=== PATIENT | male | born 1990 | race American Indian/Alaskan Native ===

== ENCOUNTER 2016-09-18 04:41 | Emergency (ER) | payer SELFPAY ==
[2016-09-18 04:42] VITALS: BMI 33.3
--- NOTE | 2016-09-18 05:15 | C.PDOC ---
History Of Present Illness 26 year old male who presents to the ER with a complaint of neck pain radiating to the arms and hands. Patient states he feels a tightness to his arms and hands. Patient took and Aleve WORKING SEC[employer] with minimal relief. Denies trauma, strenuous activity, chest pain, weakness, numbness, or SOB. Time Seen by Provider: 09/18/16 05:05 Chief Complaint (Nursing): Upper Extremity Problem/Injury History Per: Patient History/Exam Limitations: no limitations Onset/Duration Of Symptoms: Hrs Current Symptoms Are (Timing): Still Present Quality: Tightness Exacerbating Factor(s): Nothing Recent travel outside of the [place]: No Past Medical History Reviewed: Historical Data, Nursing Documentation, Vital Signs Vital Signs: Last Vital Signs Temp 97.7 F 09/18/16 05:53 Pulse 56 L 09/18/16 05:53 Resp 18 09/18/16 05:53 BP 130/72 09/18/16 05:53 Pulse Ox 99 09/18/16 05:53 - Medical History PMH: No Chronic Diseases Surgical History: No Surg Hx - [facility] Procedures INJECT/INFUSE NEC (03/19/14) Family History: States: No Known Family Hx - Social History Hx Alcohol Use: No Hx Substance Use: No Review Of Systems Cardiovascular: Negative for: Chest Pain Respiratory: Negative for: Shortness of Breath Musculoskeletal: Positive for: Neck Pain, Arm Pain (Bilateral, radiating from neck) Neurological: Negative for: Weakness, Numbness Physical Exam - Physical Exam Appears: Non-toxic, No Acute Distress Skin: Normal Color, Warm, Dry Head: Atraumatic, Normacephalic Eye(s): bilateral: Normal Inspection, PERRL Oral Mucosa: Moist Neck: Decreased ROM (limited due to pain), No Midline Cervical Tenderness, Paracervical Tenderness (b/l), No Step Off Deformity Chest: Symmetrical, No Tenderness Cardiovascular: Rhythm Regular, No Murmur Respiratory: Normal Breath Sounds, No Rhonchi, No Wheezing Extremity: Normal ROM, No Tenderness, No Deformity, No Swelling Extremity: Bilateral: Atraumatic, Normal Color And Temperature, Normal ROM Pulses: Left Radial: Normal, Right Radial: Normal Neurological/Psych: Oriented x3, Normal Motor, Normal Sensation ED Course And Treatment O2 Sat by Pulse Oximetry: 100 (Room air) Pulse Ox Interpretation: Normal Progress Note: Motrin administered. Patient is resting comfortably, and is in no acute distress. Patient was instructed to follow up with PMD in 1-2 days for further evaluation. Return precautions discussed with pt who expressed understanding Disposition Counseled Patient/Family Regarding: Diagnosis, Need For Followup, Rx Given - Disposition Disposition: HOME/ ROUTINE Disposition Time: 05:37 Condition: STABLE Additional Instructions: continue medications prescribed Follow up with PMD Return to ER if worse Prescriptions: Cyclobenzaprine [Cyclobenzaprine HCl] 10 mg PO HS #7 tab Ibuprofen [Motrin Tab] 800 mg PO QID #20 tab Instructions: Cervical Strain (GEN) - Clinical Impression Clinical Impression: Cervical strain - Scribe Statement The provider has reviewed the documentation as recorded by the Scribvalery Quintana All medical record entries made by the Taurusibvalery were at my direction and personally dictated by me. I have reviewed the chart and agree that the record accurately reflects my personal performance of the history, physical exam, medical decision making, and the department course for this patient. I have also personally directed, reviewed, and agree with the discharge instructions and disposition.
[2016-09-18 05:53] VITALS: BP 130/72; PULSE 56; RESP 18; TEMP 97.7
[2016-09-18 06:51] VITALS: O2SAT 100
== END 2016-09-18 05:55 | disposition home or self-care (01) ==
LOC: C.ER 04:41
DX: S16.1XXA Strain of muscle, fascia and tendon at neck level, initial encounter (principal); X58.XXXA Exposure to other specified factors, initial encounter

== ENCOUNTER 2016-09-18 17:29 | Emergency (ER) | payer BC, OTHER ==
[2016-09-18 17:29] VITALS: BMI 33.3
[2016-09-18 17:46] VITALS: BP 108/69; PULSE 62; RESP 18; TEMP 97.4; O2SAT 99
--- NOTE | 2016-09-18 19:15 | C.PDOC ---
History Of Present Illness 26 year old male presents to the ED with complaints of bilateral arm pain and neck pain. Patient states these pains have been present for four years and the medications he has been taking have been with no relief. Patient was in the ED this morning for similar complaints and did not feel relief with the medications then thus he is requesting stronger medications. Denies weakness, numbness of the extremities, recent trauma, CP Time Seen by Provider: 09/18/16 19:08 Chief Complaint (Nursing): Upper Extremity Problem/Injury History Per: Patient History/Exam Limitations: no limitations Onset/Duration Of Symptoms: Hrs, Intermittent Episodes (for four years ) Current Symptoms Are (Timing): Still Present Quality: "Pain" Severity: Moderate Exacerbating Factor(s): Nothing Recent travel outside of the [place]: No Past Medical History Reviewed: Historical Data, Nursing Documentation, Vital Signs Vital Signs: Last Vital Signs Temp 97.4 F L 09/18/16 17:45 Pulse 62 09/18/16 17:45 Resp 18 09/18/16 17:45 BP 108/69 09/18/16 17:45 Pulse Ox 99 09/18/16 21:14 - [facility] Procedures INJECT/INFUSE NEC (03/19/14) Family History: States: Unknown Family Hx - Social History Hx Alcohol Use: No Hx Substance Use: No - Immunization History Hx Tetanus Toxoid Vaccination: No Hx Influenza Vaccination: No Hx Pneumococcal Vaccination: No Review Of Systems Cardiovascular: Negative for: Chest Pain Respiratory: Negative for: Shortness of Breath Musculoskeletal: Positive for: Neck Pain, Arm Pain (bilateral, radiating from the neck ) Neurological: Negative for: Weakness, Numbness Physical Exam - Physical Exam Appears: Non-toxic, No Acute Distress Skin: Warm, Dry Head: Atraumatic, Normacephalic Eye(s): bilateral: Normal Inspection, PERRL, EOMI Oral Mucosa: Moist Neck: Decreased ROM (limited due to pain ), No Midline Cervical Tenderness, No Paracervical Tenderness, No Step Off Deformity Chest: Symmetrical, No Deformity Cardiovascular: Rhythm Regular, No Murmur Respiratory: Normal Breath Sounds, No Rhonchi, No Wheezing Extremity: Normal ROM, No Tenderness, No Deformity, No Swelling Pulses: Left Radial: Normal, Right Radial: Normal Neurological/Psych: Oriented x3, Normal Motor, Normal Sensation ED Course And Treatment O2 Sat by Pulse Oximetry: 99 (room air ) Progress Note: Patient was instructed on the importance of allow medications the time to have their appropriate effects, Patient was again instructed to follow up with PMD in 1-2 day for further evaluation. Disposition Counseled Patient/Family Regarding: Diagnosis, Need For Followup, Rx Given - Disposition Disposition: HOME/ ROUTINE Disposition Time: 19:14 Condition: STABLE Additional Instructions: Please continue same meds prescribed earlier Follow up in clinic Return to ER if worse Instructions: Muscle Strain (ED) Forms: Work Excuse - Clinical Impression Clinical Impression: Muscle strain, Cervical strain - Scribe Statement The provider has reviewed the documentation as recorded by the Scribvalery Yuan All medical record entries made by the Dayday were at my direction and personally dictated by me. I have reviewed the chart and agree that the record accurately reflects my personal performance of the history, physical exam, medical decision making, and the department course for this patient. I have also personally directed, reviewed, and agree with the discharge instructions and disposition.
== END 2016-09-18 19:41 | disposition home or self-care (01) ==
LOC: C.ER 17:29
DX: S16.1XXA Strain of muscle, fascia and tendon at neck level, initial encounter (principal); X58.XXXA Exposure to other specified factors, initial encounter
CPT/HCPCS: 96372; 99283; J1885

== ENCOUNTER 2017-10-23 14:34 | Emergency (ER) | payer BC ==
[2017-10-23 14:34] VITALS: BMI 33.3
[2017-10-23 14:42] VITALS: BP 131/76; PULSE 88; RESP 20; TEMP 98.2; O2SAT 98
--- NOTE | 2017-10-23 15:04 | C.PDOC ---
History Of Present Illness 27 year old male patient presents to the ER with c/o pain on left lateral pain. Patient states x2 days ago he twisted his left ankle when walking. Patient states he is still in pain. Patient did not take any medications for pain and declines pain medication from ER. Time Seen by Provider: 10/23/17 14:56 Chief Complaint (Nursing): Lower Extremity Problem/Injury History Per: Patient History/Exam Limitations: no limitations Onset/Duration Of Symptoms: Days (x2) Current Symptoms Are (Timing): Still Present - Ankle/Foot Description Of Injury: Twisted Past Medical History Reviewed: Historical Data, Nursing Documentation, Vital Signs Vital Signs: Last Vital Signs Temp 98.2 F 10/23/17 14:38 Pulse 88 10/23/17 14:38 Resp 20 10/23/17 14:38 BP 131/76 10/23/17 14:38 Pulse Ox 98 10/23/17 15:40 - [facility] Procedures INJECT/INFUSE NEC (03/19/14) Family History: States: Unknown Family Hx - Social History Hx Alcohol Use: No Hx Substance Use: No - Immunization History Hx Tetanus Toxoid Vaccination: No Hx Influenza Vaccination: No Hx Pneumococcal Vaccination: No Review Of Systems Except As Marked, All Systems Reviewed And Found Negative. Musculoskeletal: Positive for: Foot Pain (left lateral foot pain) Physical Exam - Physical Exam Appears: Well, Non-toxic, No Acute Distress Skin: Normal Color, Warm, Dry Head: Atraumatic, Normacephalic Eye(s): bilateral: Normal Inspection Nose: Normal Oral Mucosa: Moist Neck: Normal ROM, Supple Extremity: Normal ROM, Tenderness (left lateral mid foot ), Capillary Refill (< 2 sec), No Deformity, Swelling (left lateral mid foot ) Pulses: Left Dorsalis Pedis: Normal, Right Dorsalis Pedis: Normal Neurological/Psych: Oriented x3, Normal Speech, Normal Motor, Normal Sensation, Normal Reflexes Gait: Steady ED Course And Treatment O2 Sat by Pulse Oximetry: 98 (RA) Pulse Ox Interpretation: Normal - Other Rad Left foot XR X-Ray: Interpreted by Me, Viewed By Me Interpretation: no dislocation; no fracture Medical Decision Making Medical Decision Making: Impression: left lateral ankle pain Plans: -- Motrin -- XR left foot Reassess: Patient agrees to take ibuprofen for his ankle pain. Patient is tolerating PO well. Patient received post-op shoes and crutches. Patient was taught on how to operate in crutches and will be discharged home. Disposition Counseled Patient/Family Regarding: Studies Performed, Diagnosis, Need For Followup - Disposition Referrals: Jay Jay Salmeron MD [Staff Provider] - Disposition: HOME/ ROUTINE Disposition Time: 15:32 Condition: STABLE Additional Instructions: FOLLOW UP WITH DR. SALMERON ON WEDNESDAY FOR RE-EVALUATION AND OFFICIAL XRAY REPORT. TAKE ALEVE 1 TAB EVERY 12 HRS WITH FOOD NEEDED FOR PAIN. IF SYMPTOMS GET WORSE OR ANY NEW CONCERNING SYMPTOMS DEVELOP RETURN TO ED. Instructions: Finger Sprain (ED) Forms: [facility] ([place]), General Discharge Instructions - Clinical Impression Clinical Impression: Foot sprain - PA / [employer] / Resident Statement / has reviewed & agrees with the documentation as recorded. - Scribe Statement The provider has reviewed the documentation as recorded by the Scribvalery Zazueta Do All medical record entries made by the Scribe were at my direction and personally dictated by me. I have reviewed the chart and agree that the record accurately reflects my personal performance of the history, physical exam, medical decision making, and the department course for this patient. I have also personally directed, reviewed, and agree with the discharge instructions and disposition.
--- NOTE | 2017-10-23 21:54 | RAD ---
Date of service: 10/23/2017 PROCEDURE: Left Foot Radiographs. HISTORY: PAIN R/O FX COMPARISON: None. FINDINGS: BONES: Normal. No fracture. JOINTS: Normal. SOFT TISSUES: Normal. OTHER FINDINGS: None. IMPRESSION: No evidence of acute fracture or dislocation.
== END 2017-10-23 15:47 | disposition home or self-care (01) ==
LOC: C.ER 14:34
DX: S93.602A Unspecified sprain of left foot, initial encounter (principal); X50.1XXA Overexertion from prolonged static or awkward postures, initial encounter; Y93.01 Activity, walking, marching and hiking